=== PATIENT | male | born 1935 | race Caucasian/White ===

== ENCOUNTER 2020-02-23 09:44 | Emergency (ER) | payer MEDICAID ==
[~2020-02-23] VITALS: Ht 170.2 cm; Wt 70.3 kg
[2020-02-23 09:58] VITALS: BP 106/73; Ht 170.2 cm; Wt 70.3 kg
== END 2020-02-23 11:16 | disposition home or self-care (01) ==
LOC: ED 09:44
DX: H60.502 Unspecified acute noninfective otitis externa, left ear (principal); H91.92 Unspecified hearing loss, left ear; Z87.438 Personal history of other diseases of male genital organs; Z86.73 Personal history of transient ischemic attack (TIA), and cerebral infarction without residual deficits
CPT/HCPCS: 82962

== ENCOUNTER 2020-03-22 14:38 | Emergency (ER) | payer MEDICAID ==
[~2020-03-22] VITALS: Ht 167.6 cm; Wt 72.6 kg
[2020-03-22 14:50] VITALS: Ht 167.6 cm; Wt 72.6 kg
[2020-03-22 16:39] VITALS: BP 132/72
== END 2020-03-22 16:39 | disposition home or self-care (01) ==
LOC: ED 14:38
DX: S01.412A Laceration without foreign body of left cheek and temporomandibular area, initial encounter (principal); S09.8XXA Other specified injuries of head, initial encounter; Z98.890 Other specified postprocedural states; W01.0XXA Fall on same level from slipping, tripping and stumbling without subsequent striking against object, initial encounter; Y93.89 Activity, other specified; Y92.89 Other specified places as the place of occurrence of the external cause; Y99.8 Other external cause status
CPT/HCPCS: 90715; J2001